=== PATIENT | male | born 1965 | race Caucasian/White ===

== ENCOUNTER 2021-09-22 16:02 | Emergency (ER) | payer MEDICARE ==
[~2021-09-22] VITALS: Ht 193 cm; Wt 100.0 kg
[2021-09-22] MEDS ORDERED: KEFLEX500 MG PO (17:04)
[2021-09-22 17:10] VITALS: BP 135/80
== END 2021-09-22 17:10 | disposition home or self-care (01) ==
LOC: ED 16:02
PROC: 0HQGXZZ Repair Left Hand Skin, External Approach (ICD-10-PCS; principal; 2021-09-22)
DX: S61.211A Laceration without foreign body of left index finger without damage to nail, initial encounter (principal); W29.8XXA Contact with other powered hand tools and household machinery, initial encounter; Y93.89 Activity, other specified